=== PATIENT | female | born 1980 | race Caucasian/White ===

== ENCOUNTER 2017-02-02 18:47 | Observation (INO) | payer OTHER ==
[~2017-02-02 18:47] MED LIST: DSS100 PO; IBUP-2071 PO; LEVO50TA11 PO; LEVO75TA10 PO; PERCT PO; PREN-64 PO
[2017-02-02 19:00] VITALS: BP 114/65
[2017-02-02] MEDS ORDERED: LEVO150 PO (19:32)
[2017-02-02] MEDS ORDERED: LEVO100 PO (19:32)
[2017-02-02] MEDS ORDERED: RINGERS SOLUTION,LACTATED 1,000 ML IV SCH (21:00)
[2017-02-02] MEDS ORDERED: NIFEdipine 10 MG CAPSULE PO ONE (22:30)
== END 2017-02-03 | disposition home or self-care (01) ==
LOC: 4S 18:47
PROVIDERS: ADMIT Obstetrics & Gynecology; ATTEND Obstetrics & Gynecology
DX: O62.9 Abnormality of forces of labor, unspecified (principal); Z3A.37 37 weeks gestation of pregnancy
CPT/HCPCS: 59025; 96360; 96361; G0378

== ENCOUNTER 2017-02-10 08:00 | Inpatient (IN) | payer OTHER ==
[~2017-02-10] VITALS: Ht 160 cm; Wt 72.6 kg
[~2017-02-10 08:00] MED LIST changes: -DSS100 PO; -IBUP-2071 PO; +LEVO100 PO; +LEVO150 PO; -LEVO50TA11 PO; -LEVO75TA10 PO; -PERCT PO
[2017-02-10 08:35] VITALS: BP 117/61
[2017-02-10] MEDS ORDERED: RINGERS SOLUTION,LACTATED 1,000 ML IV ONE (09:25)
[2017-02-10] MEDS ORDERED: METOCLOPRAMIDE HCL 5 MG/ML 2 ML VIAL IVP ONE (09:30)
[2017-02-10] MEDS ORDERED: CITRIC ACID/SODIUM CITRATE 30 ML SOLUTION UDCUP PO ONE (09:30)
[2017-02-10 10:02] LABS: BASOPHILS % (AUTO) 0.2 % (0.0-2.0); EOSINOPHILS % (AUTO) 0.7 % (1.0-6.0); HEMOGLOBIN 12.6 g/dL (12.0-16.0); LYMPHOCYTES # (AUTO) 1.2 K/uL (1.0-4.8); LYMPHOCYTES % (AUTO) 15.4 % (22.0-44.0); MEAN CORPUSCULAR HEMOGLOBIN 27.2 pg (26.0-34.0); MEAN CORPUSCULAR HGB CONC 33.3 G/dL (31.0-37.0); MEAN CORPUSCULAR VOLUME 82 fL (80-100); MONOCYTES # (AUTO) 0.5 K/uL (0.1-1.0); MONOCYTES % (AUTO) 6.7 % (2.0-9.0); RED BLOOD CELL COUNT(AUTO) 4.64 MIL/uL (4.00-5.20); RED CELL DISTRIBUTION WIDTH 14.1 % (11.5-14.5); WHITE BLOOD COUNT (AUTO) 7.7 K/uL (4.5-11.0)
[2017-02-10] MEDS ORDERED: INFLUENZA VIRUS VACCINE QVS 2017-18 (3YR+)/PF 60 MCG/0.5 ML SYRINGE IM ONE (10:45)
[2017-02-10] MEDS ORDERED: GUM MASTIC/STORAX/MSAL/ALCOHOL LIQUID 0.67 ML VIAL TP ONE (13:23)
[2017-02-10] MEDS ORDERED: FentaNYL CITRATE-PF 100 MCG/2 ML VIAL ONE (13:23)
[2017-02-10] MEDS ORDERED: MIDAZOLAM HCL 2 MG/2 ML VIAL ONE (13:23)
[2017-02-10] MEDS ORDERED: MORPHINE SULFATE/PF 0.5 MG/ML 10 ML AMP ONE (13:23)
[2017-02-10] MEDS ORDERED: DiphenhydrAMINE HCL 50 MG/ML VIAL IVP PRN ×2 (16:00→16:15)
[2017-02-10] MEDS ORDERED: MORPHINE SULFATE 2 MG/ML SYRINGE IVP PRN (16:00)
[2017-02-10] MEDS ORDERED: FentaNYL CITRATE-PF 100 MCG/2 ML VIAL IVP PRN ×2 (16:00→16:15)
[2017-02-10] MEDS ORDERED: ONDANSETRON HCL 4 MG/2 ML VIAL IVP PRN ×2 (16:00→16:15)
[2017-02-10] MEDS ORDERED: MORPHINE SULFATE 4 MG/ML SYRINGE IVP PRN (16:15)
[2017-02-10] MEDS ORDERED: OXYGEN THERAPY IH SCH ×2 (20:00)
[2017-02-10] MEDS: NALBUPHINE HCL 10 MG/ML VIAL IVP SCH (20:27)
[2017-02-10] MEDS ORDERED: LANOLIN 7 GM OINTMENT TP PRN ×2 (20:45→21:45)
[2017-02-10] MEDS ORDERED: MAGNESIUM HYDROXIDE SUSPENSION 30 ML UDCUP PO PRN (20:45)
[2017-02-10] MEDS ORDERED: SENNA/DOCUSATE SODIUM 187-50 MG TABLET PO PRN (20:45)
[2017-02-10] MEDS ORDERED: GLYCERIN/WITCH HAZEL LEAF 40 PADS JAR TP PRN (20:45)
[2017-02-10] MEDS ORDERED: BENZOCAINE 20%/MENTHOL 56 GM SPRAY CANISTER TP PRN (20:45)
[2017-02-10] MEDS ORDERED: IBUPROFEN 600 MG TABLET PO PRN (20:45)
[2017-02-10] MEDS ORDERED: ACETAMINOPHEN/CODEINE 300-30 MG TABLET PO PRN (20:45)
[2017-02-10] MEDS: KETOROLAC TROMETHAMINE 30 MG/ML VIAL IVP SCH (21:51)
[2017-02-10] MEDS: RINGERS SOLUTION,LACTATED 1,000 ML IV SCH (21:52)
[2017-02-10] MEDS ORDERED: OXYTOCIN 10 UNITS/ML VIAL IM ONE (22:56)
[2017-02-10] MEDS ORDERED: EPHEDrine SULFATE 50 MG/ML VIAL IM ONE (22:56)
[2017-02-10] MEDS ORDERED: KETOROLAC TROMETHAMINE 60 MG/2 ML VIAL IM ONE (22:56)
[2017-02-10] MEDS ORDERED: DEXAMETHASONE SOD PHOS 4 MG/ML VIAL IVP ONE (22:56)
[2017-02-10] MEDS ORDERED: ONDANSETRON HCL 4 MG/2 ML VIAL IVP ONE (22:56)
[2017-02-11] MEDS: NALBUPHINE HCL 10 MG/ML VIAL IVP SCH ×2 (01:45→08:57)
[2017-02-11] MEDS: KETOROLAC TROMETHAMINE 30 MG/ML VIAL IVP SCH ×2 (03:58→08:58)
[2017-02-11] MEDS: RINGERS SOLUTION,LACTATED 1,000 ML IV SCH (06:06)
[2017-02-11] MEDS: LEVOTHYROXINE SODIUM 100 MCG TABLET PO SCH (06:34)
[2017-02-11 07:01] LABS: BASOPHILS # (AUTO) 0.02 K/uL (0.00-0.20); BASOPHILS % (AUTO) 0.1 % (0.0-2.0); EOSINOPHILS # (AUTO) 0.01 K/uL (0.00-0.70); EOSINOPHILS % (AUTO) 0.05 % (1.0-6.0); HEMOGLOBIN 11.5 g/dL (12.0-16.0); LYMPHOCYTES # (AUTO) 1.1 K/uL (1.0-4.8); LYMPHOCYTES % (AUTO) 8.6 % (22.0-44.0); MEAN CORPUSCULAR HEMOGLOBIN 27.1 pg (26.0-34.0); MEAN CORPUSCULAR HGB CONC 32.9 G/dL (31.0-37.0); MEAN CORPUSCULAR VOLUME 82 fL (80-100); MONOCYTES # (AUTO) 0.7 K/uL (0.1-1.0); MONOCYTES % (AUTO) 5.8 % (2.0-9.0); NEUTROPHILS # (AUTO) 10.6 K/uL (1.8-7.7); RED BLOOD CELL COUNT(AUTO) 4.24 MIL/uL (4.00-5.20); RED CELL DISTRIBUTION WIDTH 14.3 % (11.5-14.5); WHITE BLOOD COUNT (AUTO) 12.4 K/uL (4.5-11.0)
[2017-02-11 07:04] LABS: NEUTROPHILS % (AUTO) 85.5 % (40.0-70.0)
[2017-02-11] MEDS: MAGNESIUM HYDROXIDE SUSPENSION 30 ML UDCUP PO PRN ×2 (08:56→19:48)
[2017-02-11] MEDS: IBUPROFEN 800 MG TABLET PO SCH ×2 (13:54→19:48)
[2017-02-11] MEDS: ACETAMINOPHEN/CODEINE 300-30 MG TABLET PO PRN ×2 (18:35→23:03)
[2017-02-11] MEDS ORDERED: IBUPROFEN 800 MG TABLET PO PRN (21:45)
[2017-02-11] MEDS ORDERED: ACETAMINOPHEN/CODEINE 300-30 MG TABLET PO PRN ×2 (21:45)
[2017-02-12] MEDS: IBUPROFEN 800 MG TABLET PO SCH ×3 (01:42→20:24)
[2017-02-12] MEDS: LEVOTHYROXINE SODIUM 100 MCG TABLET PO SCH (06:15)
[2017-02-12] MEDS: MAGNESIUM HYDROXIDE SUSPENSION 30 ML UDCUP PO PRN ×2 (07:54→21:03)
[2017-02-12] MEDS: ACETAMINOPHEN/CODEINE 300-30 MG TABLET PO PRN ×4 (08:11→16:10)
[2017-02-12] MEDS ORDERED: OxyCODONE HCL 5 MG IR TABLET PO PRN (16:45)
[2017-02-12] MEDS ORDERED: IBUP-2071 PO (18:19)
[2017-02-12] MEDS ORDERED: FERR-89 PO (18:20)
[2017-02-12] MEDS ORDERED: PERCT PO (18:20)
[2017-02-12] MEDS ORDERED: DSS100 PO (18:20)
[2017-02-12] MEDS: OxyCODONE HCL 5 MG IR TABLET PO PRN (18:40)
[2017-02-13] MEDS: OxyCODONE HCL 5 MG IR TABLET PO PRN ×2 (00:52→06:58)
[2017-02-13] MEDS: IBUPROFEN 800 MG TABLET PO SCH ×2 (02:48→08:45)
[2017-02-13] MEDS: LEVOTHYROXINE SODIUM 100 MCG TABLET PO SCH (06:58)
[2017-02-13] MEDS: MAGNESIUM HYDROXIDE SUSPENSION 30 ML UDCUP PO PRN (08:45)
== END 2017-02-13 09:45 | disposition home or self-care (01) | DRG 766 ==
LOC: 4S 08:00 → OBSVTOIN 08:00 → 4S 02-11 00:39
PROVIDERS: ADMIT Obstetrics & Gynecology; ATTEND Obstetrics & Gynecology
PROC: 10D00Z1 Extraction of Products of Conception, Low, Open Approach (ICD-10-PCS; principal; 2017-02-10)
PROC: 3E0234Z Introduction of Serum, Toxoid and Vaccine into Muscle, Percutaneous Approach (ICD-10-PCS; 2017-02-11)
DX: O34.211 Maternal care for low transverse scar from previous cesarean delivery (principal); E03.9 Hypothyroidism, unspecified; O99.284 Endocrine, nutritional and metabolic diseases complicating childbirth; Z3A.38 38 weeks gestation of pregnancy; Z37.0 Single live birth; Z88.2 Allergy status to sulfonamides; Z23 Encounter for immunization
CPT/HCPCS: 86850; 86900; 86901; 87081; 90471; J0690; J1100; J1885; J2250; J2274; J2300; J2405; J2590; J2765; J3010; J3490; J7120